=== PATIENT | male | born 2000 | race Caucasian/White ===

== ENCOUNTER 2022-04-25 18:24 | Inpatient (IN) | payer SELFPAY ==
[~2022-04-25] VITALS: Ht 182 cm; Wt 77.7 kg
[2022-04-25] MEDS ORDERED: PROPOFOL DRIP (ICU) 100 ML IV STA (18:45)
[2022-04-25] MEDS ORDERED: LIDOCAINE UROJET 2% GEL 10 ML PKG TOP ONE (18:45)
[2022-04-25] MEDS ORDERED: PROPOFOL INJECTION 50 ML IV STA (18:45)
[2022-04-25] MEDS ORDERED: NS IV 1000 ML 1,000 ML IV STA (18:48)
--- NOTE | 2022-04-25 18:55 | ED General ---
General Chief Complaint: Substance Abuse Stated Complaint: UNRESPONSIVE History of Present Illness Date Seen by Provider: Apr 25, 2022 Time Seen by Provider: 18:25 Initial Comments 22-year-old male with unknown PMH is brought in by EMS and police for a meth overdose. Patient had barricaded himself in someone's residence and police had been called to the scene. Allegedly patient chewed a large amount of meth to avoid arrest and passed out soon after. As soon as the patient passed out, one of the dogs present on scene bit the patient on the back. Patient was intubated by EMS and brought to the ER. Patient's history unknown. Narcan given in field Allergies and Home Medications Allergies Coded Allergies: No Known Drug Allergies (Unverified , 04/25/22) Patient Home Medication List Home Medication List Reviewed: No Review of Systems Review of Systems Constitutional: no symptoms reported EENTM: no symptoms reported Respiratory: other (intubated on vent) Cardiovascular: no symptoms reported Gastrointestinal: no symptoms reported Genitourinary: no symptoms reported Musculoskeletal: no symptoms reported Skin: other (dog bite on back) Psychiatric/Neurological: Other Hematologic/Lymphatic: No Symptoms Reported Immunological/Allergic: no symptoms reported Physical Exam Vital Signs Vital Signs - First Documented 04/25/22 04/25/22 18:45 19:05 Pulse 90 B/P (MAP) 139/86 FiO2 100 Capillary Refill : Height, Weight, BMI Height: '" Weight: lbs. oz. kg; BMI Method: General Appearance: Thin, Other (intubated) HEENT: Other (reacting to light, but sluggish) Neck: Normal Inspection Respiratory: Lungs Clear Cardiovascular: Regular Rate, Rhythm, No Edema Gastrointestinal: Normal Bowel Sounds, No Organomegaly, Soft Neurologic/Psychiatric: Other (intubated) Skin: Normal Color Focused Exam Lactate Level 04/25/22 18:46: Lactic Acid Level 0.67 Lactic Acid Level Laboratory Tests Test 04/25/22 18:46 Lactic Acid Level 0.67 MMOL/L (0.50-2.00) Progress/Results/Core Measures Suspected Sepsis SIRS Temperature: Pulse: Respiratory Rate: Laboratory Tests 04/25/22 18:46: White Blood Count 7.1 Blood Pressure / Mean: 04/25/22 18:46: Lactic Acid Level 0.67 Laboratory Tests 04/25/22 18:46: Creatinine 1.14, INR Comment 1.0, Platelet Count 264, Total Bilirubin 1.0 Results/Orders Lab Results Laboratory Tests Test 04/25/22 18:46 04/25/22 19:13 04/25/22 19:15 Range/Units White Blood Count 7.1 4.3-11.0 10^3/uL Red Blood Count 4.63 4.30-5.52 10^6/uL Hemoglobin 13.9 13.3-17.7 g/dL Hematocrit 41 40-54 % Mean Corpuscular Volume 88 80-99 fL Mean Corpuscular Hemoglobin 30 25-34 pg Mean Corpuscular Hemoglobin Concent 34 32-36 g/dL Red Cell Distribution Width 13.1 10.0-14.5 % Platelet Count 264 130-400 10^3/uL Mean Platelet Volume 10.1 9.0-12.2 fL Immature Granulocyte % (Auto) 0 % Neutrophils (%) (Auto) 61 42-75 % Lymphocytes (%) (Auto) 24 12-44 % Monocytes (%) (Auto) 9 0-12 % Eosinophils (%) (Auto) 5 0-10 % Basophils (%) (Auto) 1 0-10 % Neutrophils # (Auto) 4.3 1.8-7.8 10^3/uL Lymphocytes # (Auto) 1.7 1.0-4.0 10^3/uL Monocytes # (Auto) 0.6 0.0-1.0 10^3/uL Eosinophils # (Auto) 0.3 0.0-0.3 10^3/uL Basophils # (Auto) 0.0 0.0-0.1 10^3/uL Immature Granulocyte # (Auto) 0.0 0.0-0.1 10^3/uL Prothrombin Time 13.8 12.2-14.7 SEC INR Comment 1.0 0.8-1.4 Activated Partial Thromboplast Time 28 24-35 SEC Sodium Level 139 135-145 MMOL/L Potassium Level 3.9 3.6-5.0 MMOL/L Chloride Level 108 H 98-107 MMOL/L Carbon Dioxide Level 23 21-32 MMOL/L Anion Gap 8 5-14 MMOL/L Blood Urea Nitrogen 10 7-18 MG/DL Creatinine 1.14 0.60-1.30 MG/DL Estimat Glomerular Filtration Rate 93 BUN/Creatinine Ratio 9 Glucose Level 96 70-105 MG/DL Lactic Acid Level 0.67 0.50-2.00 MMOL/L Calcium Level 8.8 8.5-10.1 MG/DL Corrected Calcium 9.0 8.5-10.1 MG/DL Magnesium Level 1.9 1.6-2.4 MG/DL Total Bilirubin 1.0 0.1-1.0 MG/DL Aspartate Amino Transf (AST/SGOT) 18 5-34 U/L Alanine Aminotransferase (ALT/SGPT) 11 0-55 U/L Alkaline Phosphatase 64 40-136 U/L Troponin I < 0.028 <0.028 NG/ML Total Protein 7.0 6.4-8.2 GM/DL Albumin 3.8 3.2-4.5 GM/DL Salicylates Level < 5.0 L 5.0-20.0 MG/DL Acetaminophen Level < 10 L 10-30 UG/ML Serum Alcohol < 10 <10 MG/DL Urine Color YELLOW Urine Clarity CLEAR Urine pH 7.5 5-9 Urine Specific [place] 1.015 L 1.016-1.022 Urine Protein NEGATIVE NEGATIVE Urine Glucose (UA) NEGATIVE NEGATIVE Urine Ketones NEGATIVE NEGATIVE Urine Nitrite POSITIVE H NEGATIVE Urine Bilirubin NEGATIVE NEGATIVE Urine Urobilinogen 0.2 < = 1.0 MG/DL Urine Leukocyte Esterase NEGATIVE NEGATIVE Urine RBC (Auto) NEGATIVE NEGATIVE Urine RBC NONE /HPF Urine WBC 0-2 /HPF Urine Squamous Epithelial Cells NONE /HPF Urine Crystals NONE /LPF Urine Bacteria LARGE H /HPF Urine Casts NONE /LPF Urine Mucus NEGATIVE /LPF Urine Culture Indicated YES Urine Opiates Screen NEGATIVE NEGATIVE Urine Oxycodone Screen NEGATIVE NEGATIVE Urine Methadone Screen NEGATIVE NEGATIVE Urine Propoxyphene Screen NEGATIVE NEGATIVE Urine Barbiturates Screen NEGATIVE NEGATIVE Ur Tricyclic Antidepressants Screen NEGATIVE NEGATIVE Urine Phencyclidine Screen NEGATIVE NEGATIVE Urine Amphetamines Screen POSITIVE H NEGATIVE Urine Methamphetamines Screen POSITIVE H NEGATIVE Urine Benzodiazepines Screen NEGATIVE NEGATIVE Urine Cocaine Screen NEGATIVE NEGATIVE Urine Cannabinoids Screen NEGATIVE NEGATIVE Bedside Blood Gas pH (LAB) 7.428 H 7.310-7.410 Bedside Blood Gas pCO2 (LAB) 36.8 L 41.0-51.0 mmHg Bedside Blood Gas pO2 (LAB) 206 H 80-105 mmHg Bedside Blood Gas HCO3 (LAB) 24.3 23.0-28.0 mmol/L POC Blood Gas Total CO2 Calc 25 24-29 mmol/L Bedside Bl Gas O2 Saturation (Calc) 100 H 95-98 % Bedside Arterial Blood Base Excess 0 -2-3 mmol/L My Orders Orders - ELIOT PETTIT MD Cbc With Automated Diff (04/25/22 18:42) Comprehensive Metabolic Panel (04/25/22 18:42) Troponin I Sullivan (04/25/22 18:42) Magnesium (04/25/22 18:42) Lactic Acid Analyzer (04/25/22 18:42) Acetaminophen (04/25/22 18:43) Alcohol (04/25/22 18:43) Drug Screen Stat (Urine) (04/25/22 18:43) Protime With Inr (04/25/22 18:43) Partial Thromboplastin Time (04/25/22 18:43) Salicylate (04/25/22 18:43) Ua Culture If Indicated (04/25/22 18:43) Continuous Ekg Monitoring (04/25/22 18:44) Ekg Tracing (04/25/22 18:44) Catheter(Urinary) Insert & Ass 03,15 (04/25/22 18:45) Lidocaine 2% (Urojet) (Xylocaine Urojet) (04/25/22 18:45) Propofol Drip (Icu) (Diprivan Drip (Icu) (04/25/22 18:45) Propofol Injection (Diprivan Injection) (04/25/22 18:45) Sedation Communication Q48H (04/25/22 18:45) Ed Iv/Invasive Line Start (04/25/22 18:48) Ns Iv 1000 Ml (Sodium Chloride 0.9%) (04/25/22 18:48) Rocuronium 5 Ml Syringe (Rocuronium 5 Ml (04/25/22 19:00) Chest 1 View, Ap/Pa Only (04/25/22 18:51) Induce Sputum (04/25/22 19:05) Urine Culture (04/25/22 19:13) Ed Admission (Communication) (04/25/22 20:05) Og Tube Insertion (04/25/22 20:06) Medications Given in ED Current Medications Medications Dose Ordered Sig/Jaimie Route Start Time Stop Time Status Last Admin Dose Admin Rocuronium [place] 30 mg ONCE ONCE IV 04/25/22 19:00 04/25/22 19:01 DC 04/25/22 18:52 30 MG Vital Signs/I&O 04/25/22 04/25/22 18:45 19:05 Pulse 90 B/P (MAP) 139/86 FiO2 100 Capillary Refill : Progress Note : Progress Note . METHAMPHETAMINE OVERDOSE: - Pt is intubated on vent - OG tube/ Herzog inseriyon - Propofol bolus and drip - NS IVF - Monitor BP - Labs unremarkable - UDS is positive for methamphetamine - Disussed with hospitalist and will admit to ICU, discussed with E-ICU on phone Departure Impression Primary Impression: Drug overdose Qualified Codes: T50.902A - Poisoning by unspecified drugs, medicaments and biological substances, intentional self-harm, initial encounter Disposition: 30 STILL A PATIENT Condition: Stable Admissions Decision to Admit/Date: Apr 25, 2022 Time/Decision to Admit Time: 18:30 Departure-Patient Inst. Patient Instructions: ALCOHOL AND SUBSTANCE ABUSE ELIOT PETTIT MD Apr 25, 2022 18:55
[2022-04-25] MEDS ORDERED: ROCURONIUM 10 MG/ML 5 ML SYRINGE IV ONE (19:00)
[2022-04-25 19:02] LABS: BASOPHILS % (AUTO) 1 % (0-10); EOSINOPHILS # (AUTO) 0.3 10^3/uL (0.0-0.3); EOSINOPHILS % (AUTO) 5 % (0-10); HEMATOCRIT 41 % (40-54); HEMOGLOBIN 13.9 g/dL (13.3-17.7); LYMPHOCYTES # (AUTO) 1.7 10^3/uL (1.0-4.0); LYMPHOCYTES % (AUTO) 24 % (12-44); MEAN CORPUSCULAR HEMOGLOBIN 30 pg (25-34); MEAN CORPUSCULAR HGB CONC 34 g/dL (32-36); MEAN CORPUSCULAR VOLUME 88 fL (80-99); MEAN PLATELET VOLUME 10.1 fL (9.0-12.2); MONOCYTES # (AUTO) 0.6 10^3/uL (0.0-1.0); MONOCYTES % (AUTO) 9 % (0-12); NEUTROPHILS # (AUTO) 4.3 10^3/uL (1.8-7.8); NEUTROPHILS % (AUTO) 61 % (42-75); PLATELET COUNT 264 10^3/uL (130-400); WHITE BLOOD COUNT 7.1 10^3/uL (4.3-11.0)
[2022-04-25 19:18] LABS: BILIRUBIN,URINE NEGATIVE (NEGATIVE); CLARITY,URINE CLEAR; COLOR,URINE YELLOW; GLUCOSE, URINE (UA) NEGATIVE (NEGATIVE); KETONES,URINE NEGATIVE (NEGATIVE); LEUKOCYTE ESTERASE ,URINE NEGATIVE (NEGATIVE); NITRITE,URINE POSITIVE (NEGATIVE); PH,URINE 7.5 (5-9); PROTEIN,URINE NEGATIVE (NEGATIVE)
[2022-04-25 19:21] LABS: ALANINE AMINOTRANSFERASE 11 U/L (0-55); ALBUMIN 3.8 GM/DL (3.2-4.5); ALKALINE PHOSPHATASE 64 U/L (40-136); BUN/CREATININE RATIO 9; CALCIUM 8.8 MG/DL (8.5-10.1); CARBON DIOXIDE 23 MMOL/L (21-32); CHLORIDE 108 MMOL/L (98-107); CREATININE SERUM 1.14 MG/DL (0.60-1.30); GFR ESTIMATED 93; GLUCOSE 96 MG/DL (70-105); MAGNESIUM 1.9 MG/DL (1.6-2.4); POTASSIUM 3.9 MMOL/L (3.6-5.0); SALICYLATE < 5.0 MG/DL (5.0-20.0); SODIUM 139 MMOL/L (135-145)
[2022-04-25 19:23] LABS: PROTHROMBIN TIME PATIENT 13.8 SEC (12.2-14.7)
[2022-04-25 19:24] LABS: ACETAMINOPHEN < 10 UG/ML (10-30)
--- NOTE | 2022-04-25 19:35 | Diagnostic Imaging Report ---
INDICATION: OG tube placement. EXAMINATION: Frontal chest was obtained at 7:21 p.m. Heart and mediastinal silhouette are normal in appearance. ET tube tip overlies mid trachea. NG tube tip is in mid stomach. There is no pneumothorax or pleural fluid. There is some mild right infrahilar infiltrate versus atelectasis. IMPRESSION: ET tube tip overlies mid trachea. NG tube tip overlies mid stomach. Mild right infrahilar infiltrate versus atelectasis. Dictated by: Dictated on workstation # [id number]
[2022-04-25 19:36] LABS: AMPHETAMINE SCREEN, URINE POSITIVE (NEGATIVE); BARBITURATE SCREEN URINE NEGATIVE (NEGATIVE); BENZODIAZEPINES SCREEN URINE NEGATIVE (NEGATIVE); CANNABINOID SCREEN, URINE NEGATIVE (NEGATIVE); COCAINE SCREEN URINE NEGATIVE (NEGATIVE); METHADONE STAT NEGATIVE (NEGATIVE); OPIATE SCREEN URINE NEGATIVE (NEGATIVE); OXYCODONE STAT NEGATIVE (NEGATIVE); PROPOXYPHENE STAT NEGATIVE (NEGATIVE); TRICYCLIC ANTIDEPRESSANTS SCRE NEGATIVE (NEGATIVE)
[2022-04-25 19:53] LABS: BACTERIA,URINE LARGE /HPF; WBC,URINE 0-2 /HPF
[2022-04-25] MEDS ORDERED: ACETAMINOPHEN 650 MG SUPP (TYLENOL) PR PRN (21:30)
[2022-04-25 21:32] VITALS: BP 119/72
[2022-04-25] MEDS ORDERED: DexMEDEtomidine 250 ML DRIP 250 ML IV SCH (22:45)
[2022-04-25] MEDS ORDERED: MIDAZOLAM 2 MG/2 ML (VERSED) VIAL IVP PRN (22:45)
--- NOTE | 2022-04-25 22:55 | Tele-ICU Progress Note ---
Progress Note 22M with unknown history julius in for intentional meth overdose, unknown quantity. Apparently he had barricaded himself within a private residence, prompting call to police. In order to avoid arrest, he chewed a large quantity of meth. Shortly after, he lost conciousness. Immediately after that, one of the dogs on the scene bit the patient's back. He was intubated in the field and transported to ED. - continue mechanical ventilation overnight, SBT in AM - continue propofol, add precedex both to lower propofol dose and to aid in extubation attempts - PRN versed and fentanyl, will likely have high and unpredictable sedation requirements, particularly as meth wears off - lovenox - protonix - LR@ 150 Focused Exam Lactate Level 04/25/22 18:46: Lactic Acid Level 0.67 Height, Weight, BMI Height: '" Weight: lbs. oz. kg; 22.79 BMI Method: KAITY EUCEDA MD Apr 25, 2022 22:55
[2022-04-25] MEDS: PROPOFOL DRIP (ICU) 100 ML IV SCH (23:21)
[2022-04-25] MEDS: LACTATED RINGERS 1,000 ML IV SCH (23:42)
[2022-04-26 00:34] VITALS: BP 123/80
[2022-04-26] MEDS: fentaNYL INJ 100 MCG/2 ML AMP IVP PRN ×2 (00:40→04:59)
[2022-04-26 02:25] VITALS: BP 96/55
[2022-04-26] MEDS: PROPOFOL DRIP (ICU) 100 ML IV SCH ×2 (02:30→06:22)
[2022-04-26] MEDS ORDERED: NS IV 500 ML 500 ML IV PRN (05:45)
[2022-04-26] MEDS ORDERED: MAGNESIUM 1 GM/100 ML IVPB 100 ML IV SCH (06:00)
[2022-04-26] MEDS ORDERED: POTASSIUM CL 10MEQ/50ML IVPB 50 ML IV SCH (06:00)
[2022-04-26] MEDS ORDERED: KCL 20 MEQ TAB (K-DUR) PO SCH (06:00)
[2022-04-26] MEDS: LACTATED RINGERS 1,000 ML IV SCH (06:11)
[2022-04-26 06:15] VITALS: BP 92/51
[2022-04-26 06:22] LABS: BASOPHILS # (AUTO) 0.1 10^3/uL (0.0-0.1); BASOPHILS % (AUTO) 1 % (0-10); EOSINOPHILS # (AUTO) 0.2 10^3/uL (0.0-0.3); EOSINOPHILS % (AUTO) 2 % (0-10); HEMATOCRIT 37 % (40-54); HEMOGLOBIN 12.6 g/dL (13.3-17.7); LYMPHOCYTES % (AUTO) 20 % (12-44); MEAN CORPUSCULAR HEMOGLOBIN 30 pg (25-34); MEAN CORPUSCULAR HGB CONC 34 g/dL (32-36); MEAN CORPUSCULAR VOLUME 89 fL (80-99); MEAN PLATELET VOLUME 10.4 fL (9.0-12.2); MONOCYTES # (AUTO) 0.7 10^3/uL (0.0-1.0); MONOCYTES % (AUTO) 7 % (0-12); NEUTROPHILS # (AUTO) 7.3 10^3/uL (1.8-7.8); NEUTROPHILS % (AUTO) 71 % (42-75); PLATELET COUNT 237 10^3/uL (130-400); WHITE BLOOD COUNT 10.3 10^3/uL (4.3-11.0)
[2022-04-26 06:30] VITALS: BP 78/47
[2022-04-26] MEDS ORDERED: NS IV 1000 ML 1,000 ML ONE (06:37)
[2022-04-26] MEDS ORDERED: NS IV 1000 ML 1,000 ML IV SCH (06:45)
[2022-04-26] MEDS ORDERED: NOREPINEPHRINE 8 MG/250 ML 250 ML IV SCH (06:45)
[2022-04-26 06:46] LABS: ALBUMIN 3.4 GM/DL (3.2-4.5); POTASSIUM 3.5 MMOL/L (3.6-5.0)
[2022-04-26 06:48] LABS: CALCIUM 8.5 MG/DL (8.5-10.1)
[2022-04-26 06:49] LABS: TOTAL PROTEIN 5.9 GM/DL (6.4-8.2)
[2022-04-26 06:51] LABS: BILIRUBIN,TOTAL 1.2 MG/DL (0.1-1.0)
[2022-04-26 06:52] LABS: PHOSPHORUS 2.8 MG/DL (2.3-4.7)
[2022-04-26 06:53] LABS: CREATININE SERUM 0.97 MG/DL (0.60-1.30)
[2022-04-26 06:55] LABS: MAGNESIUM 1.8 MG/DL (1.6-2.4)
--- NOTE | 2022-04-26 06:58 | Occ Therapy Progress Note ---
Therapy Progress Note OT orders received. OT to monitor pt's status then will initiate treatment when pt is medically stable and able to tolerate skilled therapy. VIOLA SORIA Apr 26, 2022 06:58
--- NOTE | 2022-04-26 08:02 | Diagnostic Imaging Report ---
EXAMINATION: Chest 1 view HISTORY: Intubated COMPARISON: 04/25/2022 FINDINGS: Endotracheal tube tip terminates 5 cm above the yolande. There is mild right base atelectasis. Otherwise, the lungs are clear without edema or pneumonia. No pleural effusion or pneumothorax. Heart size is normal. IMPRESSION: 1. Mild atelectasis, otherwise clear lungs. Dictated by: Dictated on workstation # [id number]
[2022-04-26] MEDS ORDERED: ROCURONIUM 10 MG/ML 5 ML SYRINGE IV ONE (08:03)
[2022-04-26] MEDS: POTASSIUM CL 10MEQ/50ML IVPB 50 ML IV SCH ×2 (08:09→08:10)
[2022-04-26] MEDS ORDERED: ENOXAPARIN 40 MG/0.4 ML (LOVENOX) SYR SC SCH (09:00)
[2022-04-26] MEDS ORDERED: PANTOPRAZOLE 40 MG (PROTONIX) VIAL IV SCH ×2 (09:00)
--- NOTE | 2022-04-26 09:21 | History & Physical-Hospitalist ---
History of Present Illness Source: patient Date Seen 04/26/22 Time Seen by a Provider: 09:21 Attending Physician PCP Admitting Physician: Olive Ch MD Attending Physician: Olive Ch MD Referring Physician Date of Admission Apr 25, 2022 at 20:06 Home Medications & Allergies Home Medications Reviewed patient Home Medication Reconciliation performed by pharmacy medication reconciliations zyglo technician and/or nursing. Patients Allergies have been reviewed. Allergies Allergies Coded Allergies No Known Drug Allergies (Unverified04/25/22) Past Aqbgrze-Djuylo-Psdvpu Hx Patient Social History Substance use?: Unable to obtain Substance type: Amphetamines, Methamphetamine Alcohol Use?: Unable to obtain Pt feels they are or have been: Unable to obtain Current Status Advance Directives: Unable to obtain Primary Language: Wallisian Preferred Spoken Language: Wallisian Sensory deficits: Other Additional sensory deficits: sedated Physical Exam Physical Exam Vital Signs Vital Signs - First Documented 04/25/22 04/25/22 19:05 20:55 O2 Flow Rate 50.00 FiO2 100 Capillary Refill : Less Than 3 Seconds Height, Weight, BMI Height: '" Weight: lbs. oz. kg; 23.45 BMI Method: Results Results/Procedures Labs Laboratory Tests 04/25/22 18:46 04/26/22 05:03 Patient resulted labs reviewed. OLIVE CH MD Apr 26, 2022 09:21
--- NOTE | 2022-04-26 09:25 | Tele-ICU Progress Note ---
Subjective Date Seen by a Provider: Apr 26, 2022 Time Seen by a Provider: 09:24 Subjective/Events-last exam (Tele-ICU Physician , Progress Note ) Available chart/ vitals / labs / Images reviewed Video assessment done using teleICU camera, rest of exam as per RN Discussed with RN Events overnight : Afebrile hemodynamically stable Respiratory - I/O = Drips: Pressors- no VENT SETTINGS and ABG reviewed Sedation: RASS Candidate for SBTContraindications : Cardiovascular Stability /Sedation Score / FI02/PEEP / ABG / CXR Consultants: 22M with unknown history julius in for intentional meth overdose, unknown quantity. Apparently he had barricaded himself within a private residence, prompting call to police. In order to avoid arrest, he chewed a large quantity of meth. Shortly after, he lost conciousness. Immediately after that, one of the dogs on the scene bit the patient's back. He was intubated in the field and transported to ED. Acute resp failure / OD-intoxication -SBT today , try off sedation gtt - only prn supportve care monitor for withdrawal Lines : periph , (Central Line Necessity Reviewed) Herzog: + OG: Nutrition: npo Analgesia: Anxiety/ delirium VTE Prophylaxis: christine 40 Stress Ulcer Prophylaxis: ppi Plans in collaboration with bedside consultants and IM MDs. Discussed with RN to reach out if any questions or concerns A total of 20 minutes of critical care time was devoted to this patient today, required to treat and/or prevent further deterioration of critical care condition ( as above ) . Sepsis Event Evaluation Height, Weight, BMI Height: '" Weight: lbs. oz. kg; 23.45 BMI Method: Focused Exam Lactate Level 04/25/22 18:46: Lactic Acid Level 0.67 Exam Exam Patient acknowledged, consented, and participated in this virtual visit which was conducted using real time audio/video Vital Signs Date Time Temp Pulse Resp B/P (MAP) Pulse Ox O2 Delivery O2 Flow Rate FiO2 04/26/22 08:00 73 12 100/62 (75) 97 Mechanical Ventilator 21.00 04/26/22 08:00 36.2 04/26/22 07:00 69 12 81/42 (55) 98 Mechanical Ventilator 21.00 04/26/22 07:00 72 04/26/22 06:30 69 78/47 04/26/22 06:22 73 118/91 04/26/22 06:15 88 12 97 21 04/26/22 06:00 73 12 87/53 (64) 97 Mechanical Ventilator 21.00 04/26/22 05:00 73 12 118/91 (100) 97 Mechanical Ventilator 21.00 04/26/22 04:00 85 12 101/62 (75) 97 Mechanical Ventilator 21.00 04/26/22 03:49 97 Mechanical Ventilator 21 04/26/22 03:43 80 96/55 04/26/22 03:21 80 96/55 04/26/22 03:00 89 12 109/63 (78) 97 Mechanical Ventilator 21.00 04/26/22 02:30 80 96/55 04/26/22 02:25 80 12 97 21 04/26/22 02:00 82 12 106/56 (73) 97 Mechanical Ventilator 21.00 04/26/22 01:10 37.0 04/26/22 01:00 88 04/26/22 01:00 88 12 104/58 (73) 97 Mechanical Ventilator 21.00 04/26/22 00:34 90 12 98 21 04/26/22 00:00 98 14 119/76 (90) 98 Mechanical Ventilator 21.00 04/25/22 23:59 99 Mechanical Ventilator 21 04/25/22 23:43 96 119/71 04/25/22 23:21 96 119/71 04/25/22 22:45 96 119/71 04/25/22 22:45 96 14 119/71 (87) 99 Mechanical Ventilator 21.00 04/25/22 22:15 96 14 114/68 (83) 99 Mechanical Ventilator 21.00 04/25/22 21:45 96 14 119/79 (92) 99 Mechanical Ventilator 21.00 04/25/22 21:32 98 14 99 21 04/25/22 21:30 98 Mechanical Ventilator 21 04/25/22 21:30 95 18 119/72 (88) 99 Mechanical Ventilator 21.00 04/25/22 21:22 37.0 94 18 129/77 (94) 100 Mechanical Ventilator 21.00 04/25/22 21:15 93 04/25/22 21:00 94 18 121/78 (92) 99 Mechanical Ventilator 21.00 04/25/22 20:55 36.0 91 18 123/75 100 Mechanical Ventilator 50.00 04/25/22 19:05 100 04/25/22 18:45 90 139/86 04/25/22 18:30 Ambu Bag 04/25/22 18:30 36.6 105 16 139/86 (103) 100 Ambu Bag I & O 04/26/22 07:00 Intake Total 3300 ml Output Total 780 ml Balance 2520 ml Height & Weight Height: '" Weight: lbs. oz. kg; 23.45 BMI Method: General Appearance: Thin, Other (intubated) HEENT: Other (reacting to light, but sluggish) Neck: Normal Inspection Respiratory: Lungs Clear Cardiovascular: Regular Rate, Rhythm, No Edema Capillary Refill: Less Than 3 Seconds Neurologic/Psychiatric: Other (intubated) Skin: Normal Color Results Lab Laboratory Tests 04/25/22 18:46 04/26/22 05:03 Assessment/Plan Assessment/Plan 1 COMFORT COYLE MD Apr 26, 2022 09:25
--- NOTE | 2022-04-26 12:21 | Physical Therapy Progress Note ---
Therapy Progress Note PT wilbert received. Will reassess when off vent. CHRISTIE ALCOCER PT Apr 26, 2022 12:21
--- NOTE | 2022-04-26 13:06 | Short Stay Summary-Hospitalist ---
History of Present Illness HPI/Chief Complaint Patient is a 22-year-old male with past medical history of methamphetamine use who presented to the emergency department after becoming unresponsive. He is unable to provide me any history but history from the nurses and the emergency room indicates that he was in pursuit with by the police and he barricaded himself in someone's home and allegedly ingested a large amount of methamphetamine. Shortly after that he passed out and EMS was summoned. He was intubated in the field by EMS and brought in for further evaluation. Can was given without improvement. He was admitted for further management. He remains intubated and sedated and is unable to provide me any history. Source: patient Exam Limitations: clinical condition Date Seen 04/26/22 Time Seen by a Provider: 08:30 Attending Physician PCP Admitting Physician: Olive Ch MD Attending Physician: Olive Ch MD Referring Physician Date of Admission Apr 25, 2022 at 20:06 Home Medications & Allergies Home Medications Reviewed patient Home Medication Reconciliation performed by pharmacy medication reconciliations surveying technician and/or nursing. Patients Allergies have been reviewed. Allergies Allergies Coded Allergies No Known Drug Allergies (Unverified04/25/22) Past Jtwsfhr-Tvlwvm-Zzxqkn Hx Patient Social History Substance use?: Unable to obtain Substance type: Amphetamines, Methamphetamine Alcohol Use?: Unable to obtain Pt feels they are or have been: Unable to obtain Current Status Advance Directives: Unable to obtain Primary Language: Ukrainian Preferred Spoken Language: Ukrainian Sensory deficits: Other Additional sensory deficits: sedated Family Medical History Reviewed Nursing Family Hx Review of Systems Constitutional: see HPI Physical Exam Physical Exam Vital Signs Vital Signs - First Documented 04/25/22 04/25/22 19:05 20:55 O2 Flow Rate 50.00 FiO2 100 Capillary Refill : Less Than 3 Seconds Height, Weight, BMI Height: '" Weight: lbs. oz. kg; 23.45 BMI Method: General Appearance: Thin, Other (intubated) HEENT: PERRL/EOMI, Moist Mucous Membranes; No Scleral Icterus (L), No Scleral Icterus (R) Neck: Normal Inspection, Supple Respiratory: Lungs Clear, No Accessory Muscle Use, No Respiratory Distress Cardiovascular: Regular Rate, Rhythm, No Edema, No Murmur Gastrointestinal: Normal Bowel Sounds, No Organomegaly, Soft Extremity: No Calf Tenderness, No Pedal Edema Neurologic/Psychiatric: Alert, Other (sedated and appears comfortable) Skin: Normal Color, Tattoos/Piercings Results Results/Procedures Labs Laboratory Tests 04/25/22 18:46 04/26/22 05:03 Patient resulted labs reviewed. Imaging: Reviewed Imaging Report Imaging [facility], [place] NAME[facility] REC#: [id number] PT STATUS: REG ER : 2000 PHYSICIAN: ELIOT PETTIT MD ADMIT DATE: 04/25/22/ER Signed Date of Exam:04/25/22 CHEST 1 VIEW, AP/PA ONLY INDICATION: OG tube placement. EXAMINATION: Frontal chest was obtained at 7:21 p.m. Heart and mediastinal silhouette are normal in appearance. ET tube tip overlies mid trachea. NG tube tip is in mid stomach. There is no pneumothorax or pleural fluid. There is some mild right infrahilar infiltrate versus atelectasis. IMPRESSION: ET tube tip overlies mid trachea. NG tube tip overlies mid stomach. Mild right infrahilar infiltrate versus atelectasis. Dictated by: Dictated on workstation # [id number] Dict: 04/25/221930 Trans: 04/25/221942 [facility] [id number] Interpreted by: GUILLERMINA BANEGAS MD Electronically signed by: GUILLERMINA BANEGAS MD 04/25/221942 [facility], [place] NAME: [facility] REC#: [id number] PT STATUS: ADM IN : 2000 PHYSICIAN: OLIVE CH MD ADMIT DATE: 04/25/22/ICU Signed Date of Exam:04/26/22 CHEST 1 VIEW, AP/PA ONLY EXAMINATION: Chest 1 view HISTORY: Intubated COMPARISON: 04/25/2022 FINDINGS: Endotracheal tube tip terminates 5 cm above the yolande. There is mild right base atelectasis. Otherwise, the lungs are clear without edema or pneumonia. No pleural effusion or pneumothorax. Heart size is normal. IMPRESSION: 1. Mild atelectasis, otherwise clear lungs. Dictated by: Dictated on workstation # [id number] Dict: 04/26/22706 Trans: 04/26/22804 [facility] [id number] Interpreted by: JOSE PATRICK MD Electronically signed by: JOSE PATRICK MD 04/26/22804 Short Stay Diagnosis Discharge Diagnosis-Short Stay Admission Diagnosis Methamphetamine overdose Final Discharge Diagnosis Methamphetamine overdose Conclusion Plan Methamphetamine overdose Acute respiratory failure Vent managed by TeleICU Extubated around [id number] Shortly afterwards he elected to leave AMA Diagnosis/Problems Diagnosis/Problems (1) Methamphetamine abuse (2) Acute respiratory failure OLIVE CH MD Apr 26, 2022 13:06
== END 2022-04-26 12:48 | disposition left against medical advice (07) | DRG 917 ==
LOC: ER 18:41 → ICU 20:06
PROVIDERS: ADMIT Family Medicine; ATTEND Family Medicine
PROC: 5A1935Z Respiratory Ventilation, Less than 24 Consecutive Hours (ICD-10-PCS; principal; 2022-04-25)
DX: T43.622A Poisoning by amphetamines, intentional self-harm, initial encounter (principal); J96.00 Acute respiratory failure, unspecified whether with hypoxia or hypercapnia; R55 Syncope and collapse
CPT/HCPCS: 36415; 71045; 80053; 80306; 80320; 80329; 81000; 82805; 83605; 83735; 84100; 84478; 84484; 85025; 85610; 85730; 87070; 87077; 87081; 87088; 87184; 87186; 87205; 93005; 94002; 94003; 94799